=== PATIENT | female | born 1995 | race Caucasian/White ===

== ENCOUNTER 2016-06-27 16:49 | Emergency (ER) | payer BC ==
[2016-06-27 17:20] VITALS: BP 116/69
--- NOTE | 2016-06-27 17:41 | UC ---
Throat Pain/Nasal Lester HPI - HPI Summary HPI Summary: ST, nasal congestion, and cough since last night. - History of Current Complaint Chief Complaint: UCGeneralIllness Stated Complaint: ST,STUFFY NOSE Time Seen by Provider: 06/27/16 17:25 Hx Obtained From: Patient ?: No Onset/Duration: Gradual Onset, Lasting Hours Cough: Nonproductive Associated Signs & Symptoms: Positive: Nasal Discharge - Allergies/Home Medications Allergies/Adverse Reactions: Allergies Allergy/AdvReac Type Severity Reaction Status Date / Time No Known Allergies Allergy Verified 06/27/16 17:20 Home Medications: Home Medications Levonorgestrel-Ethinyl Estradi [Camrese] 1 tab PO DAILY 06/27/16 [History Confirmed 06/27/16] PMH/Surg Hx/FS Hx/Imm Hx Respiratory History Of: Reports: Asthma - sports induced - Surgical History Surgical History: None - Family History Known Family History: Positive: Hypertension - Social History Occupation: Student Lives: Alone Alcohol Use: Rare Substance Use Type: None Smoking Status (MU): Never Smoked Tobacco Review of Systems Constitutional: Chills, Fatigue Skin: Negative Eyes: Negative ENT: Sore Throat, Nasal Discharge Respiratory: Negative Cardiovascular: Negative Gastrointestinal: Negative Genitourinary: Negative Motor: Negative Neurovascular: Negative Musculoskeletal: Negative Neurological: Negative Psychological: Negative All Other Systems Reviewed And Are Negative: Yes Physical Exam Triage Information Reviewed: Yes Appearance: Well-Nourished, Pain Distress - mild, with swallowing Vital Signs: Initial Vital Signs Temp 99.1 F 06/27/16 17:15 Pulse 91 06/27/16 17:15 Resp 14 06/27/16 17:15 BP 116/69 06/27/16 17:15 Pulse Ox 100 06/27/16 17:15 Vital Signs Reviewed: Yes Eye Exam: Normal Eyes: Positive: Conjunctiva Clear ENT: Positive: Hearing grossly normal, Pharynx normal, Nasal congestion, TMs normal. Negative: Nasal drainage, Tonsillar swelling, Tonsillar exudate Dental Exam: Normal Neck exam: Normal Neck: Positive: Supple, Nontender Respiratory Exam: Normal Respiratory: Positive: Chest non-tender, Lungs clear, Normal breath sounds, No respiratory distress, No accessory muscle use Cardiovascular Exam: Normal Cardiovascular: Positive: RRR, No Murmur Musculoskeletal Exam: Normal Neurological Exam: Normal Psychological Exam: Normal Skin Exam: Normal Throat Pain/Nasal Course/Dx - Differential Dx/Diagnosis Provider Diagnoses: URI, likely viral Discharge - Discharge Plan Condition: Stable Disposition: HOME Patient Education Materials: Upper Respiratory Infection (ED) Additional Instructions: Rapid strep negative. Most colds take 1-2 weeks to resolve. a DECONGESTANT can help with your stuffiness and sinuses. The most effective decongestant is Pseudoephedrine (Sudafed or generic), but you need to ask the pharmacist as it is kept behind the counter. ANTIHISTAMINES are generally NOT helpful in many colds and flus, as they can worsen sore throat and cause dry eyes/mouth and drowsiness. Antihistamines are nearly always found in "nighttime" medicines for their sedating properties ( such as Nyquil). Examples are Diphenhydramine HCL, Doxylamine, and Chlorpheniramine. They may help if you are having profuse clear drainage from the nose. an EXPECTORANT helps thin mucous in the nose and in the chest, making it easier to clear out. Expectorants are in most combination cough/cold remedies and should be taken with plenty of water. Guaifenesin is the most common expectorant , and comes in pill or liquid form (Mucinex is an extended-release form of guaifenesin). a COUGH SUPPRESSANT reduces the body's cough reflex. Dextromethorphan is in over -the-counter products, but sometimes narcotics (such as codeine or hydrocodone) are used for their cough suppressant properties.
== END 2016-06-27 18:21 | disposition home or self-care (01) ==
LOC: UCCORT 16:49
DX: J06.9 Acute upper respiratory infection, unspecified (principal)
CPT/HCPCS: 87651; 99201; G0463

== ENCOUNTER 2019-01-30 15:43 | Emergency (ER) | payer BC ==
[2019-01-30 16:23] VITALS: BP 129/81
[2019-01-30] MEDS ORDERED: Acetaminophen TAB* 325 MG PO ONE (17:11)
[2019-01-30 17:38] LABS: Influenza A Molecular NEGATIVE (Negative); Influenza B Molecular NEGATIVE (Negative)
--- NOTE | 2019-01-30 17:42 | UC ---
FLU HPI - HPI Summary HPI Summary: Pt presents with c/o sudden onset of fever, chills, dry hacking cough X 5 days. Pt states that she has night sweats and wakes up "drenched in sweat" since onset of fever on 01/25/17. - History of Current Complaint Chief Complaint: UCGeneralIllness Stated Complaint: FEVER,COUGH X 5 DAYS Time Seen by Provider: 01/30/19 17:12 Hx Obtained From: Patient Hx Last Menstrual Period: 01/09/19 ?: No Onset/Duration: Sudden Onset, Lasting Days, Still Present, Worse Since - osnet Severity Currently: Mild Severity Initially: Moderate Pain Intensity: 0 Associated Signs & Symptoms: Positive: Fever, Myalgia, Cough Related Hx: Possible Flu/Infectious Exposure - [employer] student - Risk Factors Influenza Risk Factors: Negative - Allergy/Home Medications Allergies/Adverse Reactions: Allergies Allergy/AdvReac Type Severity Reaction Status Date / Time No Known Allergies Allergy Verified 01/30/19 16:23 Home Medications: Home Medications Ibuprofen TAB* [Motrin TAB* 400 MG] 400 mg PO Q6H PRN 01/30/19 [History Confirmed 01/30/19] PMH/Surg Hx/FS Hx/Imm Hx Previously Healthy: Yes - Surgical History Surgical History: None - Family History Known Family History: Positive: Hypertension - Social History Occupation: Student Lives: Dormitory/Roommates Alcohol Use: Rare Substance Use Type: None Smoking Status (MU): Never Smoked Tobacco Have You Smoked in the Last Year: No - Immunization History Vaccination Up to Date: Yes Review of Systems All Other Systems Reviewed And Are Negative: Yes Constitutional: Positive: Fever, Chills, Fatigue Skin: Positive: Negative Eyes: Positive: Negative ENT: Positive: Negative Respiratory: Positive: Cough - dry Cardiovascular: Positive: Negative Gastrointestinal: Positive: Negative Genitourinary: Positive: Negative Motor: Positive: Negative Neurovascular: Positive: Negative Musculoskeletal: Positive: Myalgia Neurological: Positive: Weakness Psychological: Positive: Negative Is Patient Immunocompromised?: No Physical Exam Triage Information Reviewed: Yes Appearance: Well-Appearing, Other: - skin is warm, diaphoretic and flushed Vital Signs: Initial Vital Signs Temp 102.2 F 01/30/19 16:19 Pulse 115 01/30/19 16:19 Resp 16 01/30/19 16:19 BP 129/81 01/30/19 16:19 Pulse Ox 96 01/30/19 16:19 Vital Signs Reviewed: Yes Eye Exam: Normal ENT Exam: Normal Dental Exam: Normal Neck exam: Normal Neck: Positive: Supple, Nontender, No Lymphadenopathy Respiratory Exam: Normal Cardiovascular Exam: Normal Musculoskeletal Exam: Normal Neurological Exam: Normal Psychological Exam: Normal Skin Exam: Normal Flu Course/Dx - Differential Dx/Diagnosis Differential Diagnosis/HQI/PQRI: Influenza, Other - fever Provider Diagnosis: Fever of undetermined origin Discharge ED - Sign-Out/Discharge Documenting (check all that apply): Patient Departure All imaging exams completed and their final reports reviewed: No Studies - Discharge Plan Condition: Stable Disposition: HOME Patient Education Materials: Fever in Adults (ED) Referrals: No Primary Care Phys,NOPCP [Primary Care Provider] - [facility] [Outside] - Billing Disposition and Condition Condition: STABLE Disposition: Home
== END 2019-01-30 17:51 | disposition home or self-care (01) ==
LOC: UCCORT 15:43
DX: R50.9 Fever, unspecified (principal)
CPT/HCPCS: 99211; A9270-GY; G0463